=== PATIENT | male | born 1950 | race Caucasian/White ===

== ENCOUNTER 2016-07-26 08:21 | Observation (INO) | payer MEDICARE, MEDICAID ==
[2016-07-26 08:33] VITALS: BMI 22.8
--- NOTE | 2016-07-26 08:41 | EDPRACDOC ---
- General Information Chief Complaint: Psychiatric Illness Stated Complaint: OVERDOSE Time Seen by Provider: 07/26/16 08:36 Mode of Arrival: Ambulance Home Medications: Home Medications Metformin HCl 500 mg PO BID 04/29/15 Pantoprazole Sodium [Protonix] 40 mg PO DAILY 04/29/15 Propranolol HCl [Inderal] 10 mg PO BID 04/29/15 Rifaximin [Xifaxan] 550 mg PO BID 04/29/15 Venlafaxine HCl ER [Effexor XR] 75 mg PO DAILY 04/29/15 Aspirin [Chewable Aspirin] 81 mg PO DAILY 06/07/15 Budesonide/Formoterol Fumarate [Symbicort 160-4.5 Mcg Inhaler] 2 puff INH BID PRN 06/07/15 Tiotropium [place] [Spiriva] 18 mcg INH DAILY 06/07/15 Trazodone HCl 150 mg PO HS 06/07/15 Amlodipine Besylate 10 mg PO DAILY 07/26/16 Lactulose [Enulose] 10 gm PO BID 07/26/16 Allergies/Adverse Reactions: Allergies Allergy/AdvReac Type Severity Reaction Status Date / Time No Known Allergies Allergy Verified 06/07/15 22:14 - History of Present Illness Onset: 1 DAY HPI: PT PRESENTS VIA EMS WITH SUICIDAL THOUGHTS. USED $200 OF COCAINE LAST NIGHT AND STATES THAT HE WANTED TO . PT STATES HE TRIED TO HANG HIMSELF IN THE PAST, BUT DOESN'T DO THAT ANYMORE - HE COMES TO GET HELP. STATES HE HURTS ALL OVER. H/O CIRRHOSIS. - Treatment Prior to ED Arrival Reported Medications/Treatment [employer] [facility] Treatment BLS ED Past Medical History - History Reviewed Yes Nurses notes reviewed and agree except as marked - Patient Medical History Neurological History: Denies: Cerebrovascular Accident Cardiac History: Reports: Hypertension, Hypercholesterolemia. Denies: Coronary Artery Disease, Heart Attack Respiratory History: Reports: Asthma, COPD, Pneumonia (The patient is currently being for pneumonia.) GI/ History: Reports: Kidney Stones, Gastroesophageal Reflux, Ulcer (Pepti Ulcer Disease), BPH. Denies: Renal Disease Musculoskeletal History: Reports: Arthritis (and DJD) Psychological History: Reports: Anxiety, Schizophrenia, Bipolar Disorder, Substance Use Disorder. Denies: Depression Systemic History: Reports: Anemia, Diabetes. Denies: Cancer Surgical History: Reports: Other (KIDNEY STONE REMOVAL). Denies: Tonsillectomy/ Adnoidectomy - Family Medical History Reports: Hypertension, Diabetes, Stroke, Cardiac Disorders. Denies: Cancer - Social Medical History Smoking Status: Heavy tobacco smoker (5 or more cigarettes/day or daily pipe/ cigar) Social History: Reports: Cocaine Use (PAST ABUSE), Substance Use Disorder EDM Review of Systems - Review of Systems ROS Negative Except as Marked: Yes All systems reviewed and were negative except as marked Constitutional: No Symptoms Reported Eyes: No Symptoms Reported Respiratory: No Symptoms Reported Cardiovascular: No Symptoms Reported Genitourinary: No Symptoms Reported - Physical Exam Last recorded Vital Signs: Last Vital Signs Temp Pulse 91 07/26/16 08:29 Resp 22 07/26/16 08:29 BP 170/94 07/26/16 08:29 Pulse Ox 98 07/26/16 08:29 Oxygen Pulse Oxygen Saturation 98 O2 Device Room Air Oxygen Flow Rate Fraction of Inspired Oxygen ( FIO2) - Results 07/26/16 09:02 07/26/16 09:02 - EKG EKG #1 EKG Time: 08:49 -: Yes EKG interpreted by me Rate: bpm: 66 [place]: Normal Rhythm: NSR ST: Nonsp Comments: ABNORMAL EKG - Departure Yes I personally saw and evaluated the patient. Condition: Stable Final Diagnosis: Drug abuse, Suicidal ideations Referrals: None,No Provider [Primary Care Provider] - One Week Prescriptions: No Action Metformin HCl 500 mg PO BID Propranolol HCl [Inderal] 10 mg PO BID Pantoprazole Sodium [Protonix] 40 mg PO DAILY Rifaximin [Xifaxan] 550 mg PO BID Venlafaxine HCl ER [Effexor XR] 75 mg PO DAILY Aspirin [Chewable Aspirin] 81 mg PO DAILY Trazodone HCl 150 mg PO HS Tiotropium [place] [Spiriva] 18 mcg INH DAILY Budesonide/Formoterol Fumarate [Symbicort 160-4.5 Mcg Inhaler] 2 puff INH BID PRN PRN Reason: Shortness Of Breath Amlodipine Besylate 10 mg PO DAILY Lactulose [Enulose] 10 gm PO BID
[2016-07-26 09:10] LABS: ALL NEG? NO
[2016-07-26 09:14] LABS: AUTOMATED BASOPHIL 0.6 % (0-2); AUTOMATED EOSINOPHIL 3.2 % (0-5); AUTOMATED LYMPH 22.3 % (17-44); AUTOMATED MONOCYTE 9.2 % (3-10); AUTOMATED NEUTROPHIL 64.7 % (45-76); MPV 7.4 fL (7.4-10.4)
[2016-07-26 09:26] LABS: LEUKOCYTES/URINE NEG (NEGATIVE); NITRITE/URINE NEG (NEGATIVE); URINE OCCULT BLOOD 1+ (NEG/TRACE)
[2016-07-26 09:26] LABS: BLOOD UREA NITROGEN 13 MG/DL (9-20); CALC CORRECTED 9.2 MG/DL (8.4-10.2); CALCULATED OSMOLALITY 272 MOs/Kg (270-290); CHLORIDE 105 mEq/L (98-107); ETOH-MGDL < 10 mg/dL; GLUCOSE 115 mg/dL (70-99); SODIUM LEVEL 141 mEq/L (137-146)
[2016-07-26 09:30] LABS: MDMA* NEG (NEGATIVE); METHAMPHETAMINES NEG (NEGATIVE)
[2016-07-26 09:31] LABS: OXYCODONE NEG (NEGATIVE)
[2016-07-26] MEDS ORDERED: ACETAMINOPHEN 325 MG/TAB TABLET PO PRN (10:43)
[2016-07-26] MEDS ORDERED: ONDANSETRON HCL 4 MG ODT TAB PO PRN (10:43)
[2016-07-26] MEDS ORDERED: IBUPROFEN 400 MG TAB PO PRN (10:43)
[2016-07-26] MEDS ORDERED: NICOTINE 21 MG PATCH TOP SCH (11:00)
[2016-07-26 12:02] VITALS: BP 146/79; PULSE 71
[2016-07-26 12:21] VITALS: TEMP 98
--- NOTE | 2016-07-26 17:26 | TUDEPART ---
Disposition: Home Condition: Stable Education/Counseling Given To: Patient Education/Counseling Given Regarding: Diagnosis, Treatment, Prognosis, Follow Up Follow-up / Referrals: None,No Provider [Primary Care Provider] - One Week - Physical Exam Last recorded Vital Signs: Last Vital Signs Temp 98.0 F 07/26/16 12:02 Pulse 71 07/26/16 12:02 Resp 18 07/26/16 12:02 BP 146/79 07/26/16 12:02 Pulse Ox 99 07/26/16 12:02 Oxygen Pulse Oxygen Saturation 99 O2 Device Room Air Oxygen Flow Rate Fraction of Inspired Oxygen ( FIO2)
== END 2016-07-26 17:39 | disposition home or self-care (01) ==
LOC: ED 08:21 → TUOBSINP 10:43
PROVIDERS: ADMIT Emergency Medicine; ATTEND Emergency Medicine
DX: R45.851 Suicidal ideations (principal); F14.10 Cocaine abuse, uncomplicated; J18.9 Pneumonia, unspecified organism; I10 Essential (primary) hypertension; E78.00 Pure hypercholesterolemia, unspecified; J44.9 Chronic obstructive pulmonary disease, unspecified; J45.909 Unspecified asthma, uncomplicated; E11.9 Type 2 diabetes mellitus without complications; K21.9 Gastro-esophageal reflux disease without esophagitis; K74.60 Unspecified cirrhosis of liver; N40.0 Benign prostatic hyperplasia without lower urinary tract symptoms; F17.200 Nicotine dependence, unspecified, uncomplicated; Z79.899 Other long term (current) drug therapy
CPT/HCPCS: 36415; 80053; 80307; 81001; 85025; 86592; 87086; 93005; 99283; A9270; G0378; G0480; J3490